=== PATIENT | female | born 1995 | race Caucasian/White ===

== ENCOUNTER 2018-01-12 21:04 | Emergency (ER) | payer BC, OTHER ==
[~2018-01-12] VITALS: Ht 172.7 cm; Wt 85.8 kg
[~2018-01-12 21:04] MED LIST: CITA10SO PO; CITA20 PO
[2018-01-12 21:08] VITALS: BP 112/57; PULSE 113; RESP 20; TEMP 99.5; O2SAT 96
[2018-01-12 21:19] VITALS: BP 125/74; PULSE 110; RESP 18; O2SAT 98
[2018-01-12] MEDS ORDERED: SODIUM CHLOR 0.9% 1000 ML INJ 1,000 ML IV ONE (21:45)
[2018-01-12] MEDS ORDERED: PROCHLORPERAZINE INJ 10 MG/2 ML VIAL IV PUSH ONE (21:45)
[2018-01-12] MEDS ORDERED: IBUPROFEN 800 MG TAB PO ONE (21:45)
[2018-01-12 22:09] LABS: AUTOMATED NEUTROPHIL # 9.1 TH/MM3 (1.8-7.7); BASOPHIL % 0.3 % (0.0-2.0); EOSINOPHIL % 0.1 % (0.0-4.0); HEMATOCRIT 40.5 % (35.0-46.0); HEMOGLOBIN 13.9 GM/DL (11.6-15.3); LYMPH % 8.7 % (9.0-44.0); MEAN CELL VOLUME 87.3 FL (80.0-100.0); MEAN CORPUSCULAR HGB CONC 34.4 % (32.0-36.0); MEAN PLATELET VOLUME 8.7 FL (7.0-11.0); MONO % 11.3 % (0.0-8.0); MONOCYTE # 1.3 TH/MM3 (0-0.9); NEUT % 79.6 % (16.0-70.0); PLATELET COUNT 234 TH/MM3 (150-450); RED BLOOD COUNT 4.64 MIL/MM3 (4.00-5.30); RED CELL DISTRIBUTION WIDTH 12.4 % (11.6-17.2); WHITE BLOOD COUNT 11.4 TH/MM3 (4.0-11.0)
--- NOTE | 2018-01-12 22:25 | PD ---
HPI Chief Complaint: Cold / Flu Symptoms Time Seen by Provider: 21:39 Travel History International Travel<30 days: No Contact w/Intl Traveler<30days: No Traveled to known affect area: No History of Present Illness HPI 22-year-old female presents today with complaints of fevers chills body aches. Patient states that she has had a URI for last 2-3 days. She has got nasal drainage. She also has posterior pharynx discomfort. She states the drainage is been causing her to cough. When asked if she is coughing up any phlegm, she states she is in a to yellowish in color. She was concerned because at one time she had a "blood infection" that caused her to have chills and body aches similar to what she is experiencing. She does have ill contacts at work. She reports that there is several people with URI type symptoms. She denies being . She states she uses a NuvaRing but just recently removed. PFSH Past Medical History ADD: Yes ADHD: No Autoimmune Disease: No Weight (Kg): 3 Cancer: No Cardiovascular Problems: No Diabetes: No Gastrointestinal Disorders: No Genitourinary: No Headaches: No Musculoskeletal: No Neurologic: No Psychiatric: Yes (DEPRESSION, ADD) Respiratory: No Immunizations Current: Yes Migraines: No Seizures: No Thyroid Disease: No Ulcer: No Tetanus Vaccination: Unknown Influenza Vaccination: No ?: Not LMP: NOW Past Surgical History Surgical History: No Previous Surgery Section: No Genitourinary Surgery: No Other Surgery: No Social History Alcohol Use: No Tobacco Use: No Substance Use: No Allergies-Medications (Allergen,Severity, Reaction): Coded Allergies: vancomycin (Unverified Allergy, Severe, 01/12/18) Reported Meds & Prescriptions Reported Meds & Active Scripts Active Zofran Odt (Ondansetron Odt) 4 Mg Tab 4 Mg SL Q8HR PRN Augmentin (Amoxicillin-Clavulanate) 875-125 Mg Tab 1 Tab PO BID 10 Days Review of Systems Except as stated in HPI: all other systems reviewed are Neg General / Constitutional: Positive: Fever, Chills HENT: Positive: Headaches (Mild sinus discomfort), No: Neck Stiffness (Please note the chart says neck stiffness however patient does not have neck stiffness on my questioning. And she has got good full range of motion.), Neck Pain Cardiovascular: No: Chest Pain or Discomfort, Palpitations Respiratory: Positive: Cough, No: Shortness of Breath Gastrointestinal: No: Nausea, Vomiting, Abdominal Pain Genitourinary: No: Frequency, Dysuria, Flank Pain Musculoskeletal: Positive: Myalgias, No: Pain Neurologic: Positive: Headache (Sinus), No: Weakness, Dizziness Physical Exam Narrative GENERAL: Well-developed well-nourished female no acute respiratory distress. SKIN: Focused skin assessment warm/dry. HEAD: Atraumatic. Normocephalic. EYES: No scleral icterus. No injection or drainage. ENT: No nasal bleeding or discharge. Mucous membranes pink and moist. Erythematous posterior oropharynx. Patient has some white patches noted on her right tonsillar pillar. Uvula midline. NECK: Trachea midline. Supple. Full range of motion. CARDIOVASCULAR: Regular rate and rhythm. No murmur appreciated. RESPIRATORY: No accessory muscle use. Clear to auscultation. Breath sounds equal bilaterally. GASTROINTESTINAL: Abdomen soft, non-tender, nondistended. Hepatic and splenic margins not palpable. MUSCULOSKELETAL: No obvious deformities. No clubbing. No cyanosis. No edema. NEUROLOGICAL: Awake and alert. No obvious cranial nerve deficits. Motor grossly within normal limits. Normal speech. PSYCHIATRIC: Appropriate mood and affect; insight and judgment normal. Data Data Last Documented VS Vital Signs Date Time Temp Pulse Resp B/P (MAP) Pulse Ox O2 Delivery O2 Flow Rate FiO2 01/12/18 23:00 90 16 116/71 (86) 98 Room Air 01/12/18 21:08 99.5 Orders Orders Complete Blood Count With Diff (01/12/18 21:39) Basic Metabolic Panel (Bmp) (01/12/18 21:39) Urinalysis - C+S If Indicated (01/12/18 21:39) Group A Rapid Strep Screen (01/12/18 21:39) Influenzae A/B Antigen (01/12/18 21:39) Ed Urine Pregnancytest Poc (01/12/18 21:39) Sodium Chlor 0.9% 1000 Ml Inj (Ns 1000 M (01/12/18 21:45) Prochlorperazine Inj (Compazine Inj) (01/12/18 21:45) Ibuprofen (Motrin) (01/12/18 21:45) Strep Culture (Group A) (01/12/18 21:55) Potassium Chloride Eff (K-Lyte Cl Eff) (01/12/18 22:45) Labs Laboratory Tests Test 01/12/18 21:55 01/12/18 22:30 White Blood Count 11.4 TH/MM3 Red Blood Count 4.64 MIL/MM3 Hemoglobin 13.9 GM/DL Hematocrit 40.5 % Mean Corpuscular Volume 87.3 FL Mean Corpuscular Hemoglobin 30.0 PG Mean Corpuscular Hemoglobin Concent 34.4 % Red Cell Distribution Width 12.4 % Platelet Count 234 TH/MM3 Mean Platelet Volume 8.7 FL Neutrophils (%) (Auto) 79.6 % Lymphocytes (%) (Auto) 8.7 % Monocytes (%) (Auto) 11.3 % Eosinophils (%) (Auto) 0.1 % Basophils (%) (Auto) 0.3 % Neutrophils # (Auto) 9.1 TH/MM3 Lymphocytes # (Auto) 1.0 TH/MM3 Monocytes # (Auto) 1.3 TH/MM3 Eosinophils # (Auto) 0.0 TH/MM3 Basophils # (Auto) 0.0 TH/MM3 CBC Comment DIFF FINAL Differential Comment Blood Urea Nitrogen 7 MG/DL Creatinine 0.91 MG/DL Random Glucose 146 MG/DL Calcium Level 8.5 MG/DL Sodium Level 137 MEQ/L Potassium Level 3.1 MEQ/L Chloride Level 105 MEQ/L Carbon Dioxide Level 24.5 MEQ/L Anion Gap 8 MEQ/L Estimat Glomerular Filtration Rate 79 ML/MIN Urine Color YELLOW Urine Turbidity CLEAR Urine pH 6.0 Urine Specific [place] LESS/EQUAL 1.005 Urine Protein NEG mg/dL Urine Glucose (UA) NEG mg/dL Urine Ketones NEG mg/dL Urine Occult Blood TRACE Urine Nitrite NEG Urine Bilirubin NEG Urine Urobilinogen 1.0 MG/DL Urine Leukocyte Esterase TRACE Urine Squamous Epithelial Cells 0-5 /hpf Microscopic Urinalysis Comment CULT NOT INDICATED MDM Medical Decision Making Medical Screen Exam Complete: Yes Emergency Medical Condition: Yes Differential Diagnosis Viral syndrome versus fluids of versus strep pharyngitis Narrative Course 22-year-old female presents today with body aches chills and fever. Patient concerned she may have bacteremia. The patient has erythematous posterior pharynx with some white patches noted on her right tonsillar pillar. Uvula is midline. She also has nasal discharge and a cough. There is a high likelihood that this could be viral syndrome however given the white patches on her tonsils , she will be treated with Augmentin [address]46 days. She has been given 800 mg of Motrin and 1 L of IV fluid followed by 20 mg of Compazine. She will be discharged with a prescription. She is instructed to take all 10 days even if she feels better. She also be instructed to use Motrin 6-800 mg every 6-8 hours as needed for the body aches. If her fever persists she can add Tylenol up to 650 every 4-6 hours. Her potassium was 3.1. She has been given 25 mEq of potassium. She will be instructed to increase her potassium rich diet. Diagnosis Primary Impression: Pharyngitis Additional Impressions: URI (upper respiratory infection) Mild hypokalemia Additional Instructions: Increase potassium rich diet. Motrin 6-800 mg every 6-8 hours. If fever persist, you can add Tylenol 650 every 4-6 hours. Drink plenty of fluids. Make sure you take all medication as prescribed. Return if feeling worse. Scripts Ondansetron Odt (Zofran Odt) 4 Mg Tab 4 MG SL Q8HR Y for Nausea/Vomiting, #10 TAB 0 Refills Prov: Woodrow Palacios MD 01/12/18 Amoxicillin-Clavulanate (Augmentin) 875-125 Mg Tab 1 TAB PO BID for Infection for 10 Days, #20 TAB 0 Refills Prov: Woodrow Palacios MD 01/12/18 Disposition: 01 DISCHARGE HOME Condition: Stable Woodrow Palacios MD January 12, 2018 22:25
[2018-01-12 22:26] LABS: CALCIUM 8.5 MG/DL (8.5-10.1)
[2018-01-12 22:27] LABS: BICARBONATE 24.5 MEQ/L (21.0-32.0)
[2018-01-12 22:30] LABS: CREATININE 0.91 MG/DL (0.50-1.00)
[2018-01-12 22:39] LABS: BILIRUBIN, URINE NEG (NEG); BLOOD, URINE TRACE (NEG); GLUCOSE,URINE NEG (NEG); KETONE, URINE NEG (NEG); NITRITE,URINE NEG (NEG); URINE COLOR YELLOW (YELLW/STRAW); URINE LEUKOCYTE ESTERASE TRACE (NEG)
[2018-01-12] MEDS ORDERED: POTASSIUM CHLORIDE 25 MEQ EFFERVESCENT TAB PO ONE (22:45)
[2018-01-12 22:48] LABS: SQUAMOUS EPITHELIAL CELL URINE 0-5 /hpf (0-5)
[2018-01-12 23:00] VITALS: BP 116/71; PULSE 90; RESP 16; O2SAT 98
[2018-01-12] MEDS ORDERED: AUGM875T3 PO (23:04)
[2018-01-12] MEDS ORDERED: ZOFR4TAB3 SL (23:04)
== END 2018-01-12 23:39 | disposition home or self-care (01) ==
LOC: PHED 21:04
DX: J06.9 Acute upper respiratory infection, unspecified (principal); R51 Headache; E87.6 Hypokalemia; F98.8 Other specified behavioral and emotional disorders with onset usually occurring in childhood and adolescence; F32.9 Major depressive disorder, single episode, unspecified
CPT/HCPCS: 80048; 81001; 84703; 85025; 87081; 87804; 87880; 96361; 96374; 99284; J0780; J7030